=== PATIENT | female | born 1980 | race Caucasian/White ===

== ENCOUNTER 2017-10-25 14:17 | Inpatient (IN) | payer BC ==
[~2017-10-25 14:17] MED LIST: OXYTOCIN 30 UNITS/LR 500 ML BAG IV
[2017-10-25] MEDS ORDERED: OXYTOCIN 30 UNITS/LR 500 ML IV (16:00)
[2017-10-25] MEDS ORDERED: CARBOPROST 250 MCG INJ IM (16:00)
[2017-10-25] MEDS ORDERED: MISOPROSTOL 200 MCG TAB PR (16:00)
[2017-10-25] MEDS ORDERED: METHYLERGONOVINE 0.2 MG INJ IM (16:00)
[2017-10-25 18:51] LABS: ADD MAN DIFF? NO
[2017-10-25 18:52] LABS: WHITE BLOOD COUNT 12.9 10^3/ul (4.8-10.8)
[2017-10-25 18:53] LABS: BASOPHILS % 0.2 % (0.0-2.0); EOSINOPHILS # 0.1 10^3/ul (0.0-0.5); EOSINOPHILS % 0.5 % (0.0-7.0); HEMATOCRIT 40.3 % (37.0-47.0); HEMOGLOBIN 12.5 g/dl (12.0-16.0); LYMPHOCYTES # 2.7 10^3/ul (0.8-2.9); LYMPHOCYTES % 21.2 % (15.0-51.0); MEAN CORPUSCULAR HEMOGLOBIN 23.4 pg (29.0-33.0); MEAN CORPUSCULAR VOLUME 75.5 fl (82.0-101.0); MEAN PLATELET VOLUME 11.3 fl (7.4-10.4); MONOCYTE # 0.6 10^3/ul (0.3-0.9); MONOCYTES % 4.3 % (0.0-11.0); NEUTROPHIL # 9.3 10^3/ul (1.6-7.5); NEUTROPHILS % 72.2 % (39.0-77.0); PLATELET COUNT 238 10^3/UL (140-415); RED BLOOD COUNT 5.34 10^6/ul (4.20-5.40); RED CELL DISTRIBUTION WIDTH 15.7 % (11.5-14.5)
[2017-10-25 19:14] LABS: INR 0.91; PROTIME 12.3 Sec (11.9-14.9)
[2017-10-25 19:15] LABS: PARTIAL THROMBOPLASTIN TIME 25.4 Sec (25.0-35.0)
[2017-10-25 19:48] LABS: HEPATITIS B SURFACE ANTIGEN NEGATIVE (NEGATIVE)
[2017-10-25] MEDS: LACTATED RINGER'S 1,000 ML IV ×2 (20:13→22:23)
[2017-10-25 21:47] LABS: RAPID PLASMA REAGIN NONREACTIVE (NR)
[2017-10-25] MEDS ORDERED: morphine SULFATE/PF (10 MG/10 ML) INJ (22:43)
[2017-10-25] MEDS ORDERED: PHENYLephrine (100 MCG/ML) 5ML SYG ×3 (22:56→23:31)
[2017-10-25] MEDS ORDERED: ONDANSETRON 4 MG INJ (23:38)
[2017-10-26] MEDS: OXYTOCIN 30 UNITS/LR 500 ML IV ×2 (00:14→03:57)
[2017-10-26] MEDS ORDERED: METOCLOPRAMIDE 10 MG INJ IV (00:30)
[2017-10-26] MEDS ORDERED: NALOXONE (0.4 MG/ML) INJ IV (00:30)
[2017-10-26] MEDS ORDERED: KETOROLAC 30 MG INJ IV (00:30)
[2017-10-26] MEDS ORDERED: FENTAnyl 50 MCG/ML VIAL IV ×2 (00:30)
[2017-10-26] MEDS ORDERED: DIPHENHYDRAMINE 50 MG INJ IV ×2 (00:30)
[2017-10-26] MEDS ORDERED: HYDROmorphONE 0.5 MG/0.5 ML SYG IV ×2 (00:30)
[2017-10-26] MEDS ORDERED: ONDANSETRON 4 MG INJ IV ×2 (00:30)
[2017-10-26] MEDS ORDERED: HYDROmorphONE (0.2 MG/ML) 10ML SYG IV ×3 (00:30)
[2017-10-26] MEDS: CEFAZOLIN 2 GM/50 ML (PMX) 50 ML IVPB (00:37)
[2017-10-26] MEDS: KETOROLAC 30 MG INJ IV ×3 (01:35→17:50)
[2017-10-26] MEDS: LACTATED RINGER'S 1,000 ML IV ×3 (02:55→18:55)
[2017-10-26] MEDS ORDERED: MISOPROSTOL 200 MCG TAB PR (03:00)
[2017-10-26] MEDS ORDERED: CARBOPROST 250 MCG INJ IM (03:00)
[2017-10-26] MEDS ORDERED: OXYTOCIN 30 UNITS/LR 500 ML IV (03:00)
[2017-10-26] MEDS ORDERED: METHYLERGONOVINE 0.2 MG INJ IM (03:00)
[2017-10-26] MEDS: LANOLIN 7 GM TUBE TOP (03:57)
[2017-10-26 09:30] LABS: ADD MAN DIFF? NO
[2017-10-26 09:34] LABS: BASOPHILS % 0.2 % (0.0-2.0); EOSINOPHILS % 0.1 % (0.0-7.0); HEMATOCRIT 29.2 % (37.0-47.0); HEMOGLOBIN 9.2 g/dl (12.0-16.0); LYMPHOCYTES # 2.2 10^3/ul (0.8-2.9); LYMPHOCYTES % 15.5 % (15.0-51.0); MEAN CORPUSCULAR HEMOGLOBIN 23.6 pg (29.0-33.0); MEAN CORPUSCULAR HGB CONC 31.5 g/dl (32.0-37.0); MEAN CORPUSCULAR VOLUME 74.9 fl (82.0-101.0); MEAN PLATELET VOLUME 11.3 fl (7.4-10.4); MONOCYTE # 0.5 10^3/ul (0.3-0.9); MONOCYTES % 3.6 % (0.0-11.0); NEUTROPHIL # 11.2 10^3/ul (1.6-7.5); NEUTROPHILS % 79.8 % (39.0-77.0); PLATELET COUNT 195 10^3/UL (140-415); RED CELL DISTRIBUTION WIDTH 15.4 % (11.5-14.5)
[2017-10-26] MEDS: SENNA/DOCUSATE NA (8.6MG/50MG) TAB PO ×2 (09:48→21:27)
[2017-10-26] MEDS: FERROUS SULFATE (EC) 325 MG TAB PO (21:27)
[2017-10-27] MEDS: LACTATED RINGER'S 1,000 ML IV ×3 (02:55→18:55)
[2017-10-27] MEDS: OXYCODONE/ACETAMINOPHEN (5/325) TAB PO ×5 (02:57→18:16)
[2017-10-27] MEDS: IBUPROFEN 800 MG TAB PO ×3 (05:48→21:40)
[2017-10-27 08:23] LABS: ADD MAN DIFF? NO
[2017-10-27 08:26] LABS: BASOPHILS % 0.1 % (0.0-2.0); EOSINOPHILS # 0.1 10^3/ul (0.0-0.5); EOSINOPHILS % 0.9 % (0.0-7.0); HEMATOCRIT 28.9 % (37.0-47.0); HEMOGLOBIN 9.1 g/dl (12.0-16.0); LYMPHOCYTES # 2.5 10^3/ul (0.8-2.9); LYMPHOCYTES % 19.5 % (15.0-51.0); MEAN CORPUSCULAR HEMOGLOBIN 23.6 pg (29.0-33.0); MEAN CORPUSCULAR HGB CONC 31.5 g/dl (32.0-37.0); MEAN CORPUSCULAR VOLUME 75.1 fl (82.0-101.0); MEAN PLATELET VOLUME 11.4 fl (7.4-10.4); MONOCYTE # 0.6 10^3/ul (0.3-0.9); MONOCYTES % 4.7 % (0.0-11.0); NEUTROPHIL # 9.5 10^3/ul (1.6-7.5); NEUTROPHILS % 73.6 % (39.0-77.0); PLATELET COUNT 213 10^3/UL (140-415); RED BLOOD COUNT 3.85 10^6/ul (4.20-5.40); RED CELL DISTRIBUTION WIDTH 15.8 % (11.5-14.5)
[2017-10-27 08:26] LABS: WHITE BLOOD COUNT 12.9 10^3/ul (4.8-10.8)
[2017-10-27] MEDS: FERROUS SULFATE (EC) 325 MG TAB PO ×3 (09:16→21:40)
[2017-10-27] MEDS: SENNA/DOCUSATE NA (8.6MG/50MG) TAB PO ×2 (09:16→21:40)
[2017-10-28] MEDS: OXYCODONE/ACETAMINOPHEN (5/325) TAB PO ×3 (00:30→14:54)
[2017-10-28] MEDS: LACTATED RINGER'S 1,000 ML IV (02:55)
[2017-10-28] MEDS: IBUPROFEN 800 MG TAB PO ×2 (06:51→14:54)
[2017-10-28] MEDS: FERROUS SULFATE (EC) 325 MG TAB PO ×2 (08:23→12:40)
[2017-10-28] MEDS: SENNA/DOCUSATE NA (8.6MG/50MG) TAB PO (08:23)
[2017-10-29] MEDS ORDERED: DIPHTH/TET/ACEL PERTUSS (ADULT) 0.5 ML VIAL IM* (09:00)
== END 2017-10-28 17:30 | disposition home or self-care (01) | DRG 766 ==
LOC: OBT 14:17 → L-D 10-26 00:19 → PP1 10-26 02:36 → OBT 15:30 → L-D 15:30
PROVIDERS: Obstetrics & Gynecology
PROC: 10D00Z1 Extraction of Products of Conception, Low, Open Approach (ICD-10-PCS; principal; 2017-10-25 19:15)
PROC: 3E033VJ Introduction of Other Hormone into Peripheral Vein, Percutaneous Approach (ICD-10-PCS; 2017-10-25 19:15)
DX: O32.1XX0 Maternal care for breech presentation, not applicable or unspecified (principal); O48.0 Post-term pregnancy; Z3A.40 40 weeks gestation of pregnancy; Z37.0 Single live birth
CPT/HCPCS: 76815; 76816; 76818; 85025; 85610; 85730; 86592; 86850; 86900; 86901; 87340; 94760; 99464